=== PATIENT | female | born 1990 | race African-American/Black ===

== ENCOUNTER 2021-03-04 19:47 | Day surgery (SDC) | payer OTHER ==
[2021-03-04] MEDS ORDERED: hydrALAZINE 20 MG/ML VIAL SLOW IVP PRN (20:17)
[2021-03-04 20:36] VITALS: BMI 34.9
[2021-03-04] MEDS ORDERED: Acetaminophen 500 MG TAB PO SCH (21:15)
[2021-03-04] MEDS ORDERED: Lactated Ringer's 1,000 ML IV SCH (22:15)
== END 2021-03-05 00:17 | disposition home health service (06) ==
LOC: CSHLD/OP 19:47
PROVIDERS: ATTEND Obstetrics & Gynecology
DX: O99.891 Other specified diseases and conditions complicating pregnancy (principal); O30.003 Twin pregnancy, unspecified number of placenta and unspecified number of amniotic sacs, third trimester; M25.552 Pain in left hip; M25.551 Pain in right hip; M25.569 Pain in unspecified knee; Z3A.29 29 weeks gestation of pregnancy; Z79.899 Other long term (current) drug therapy; W01.0XXA Fall on same level from slipping, tripping and stumbling without subsequent striking against object, initial encounter; Y93.89 Activity, other specified; Y92.009 Unspecified place in unspecified non-institutional (private) residence as the place of occurrence of the external cause
CPT/HCPCS: 99283

== ENCOUNTER 2021-03-07 15:51 | Observation (INO) | payer BC, OTHER ==
[2021-03-07] MEDS ORDERED: hydrALAZINE 20 MG/ML VIAL SLOW IVP PRN (15:58)
[2021-03-07] MEDS: Betamet Acet/Betamet Na Ph 30 MG/5 ML VIAL IM SCH (16:37)
[2021-03-07 16:50] VITALS: BMI 35.9
[2021-03-07 19:16] LABS: SARS-CoV-2 NAA Rapid Test Not Detected (NotDetected)
[2021-03-08] MEDS: Betamet Acet/Betamet Na Ph 30 MG/5 ML VIAL IM SCH (16:18)
== END 2021-03-08 16:45 | disposition home or self-care (01) ==
LOC: CSHLD/OP 15:51 → CSHLD 17:45 → CSHANTE 03-08 12:30
PROVIDERS: ADMIT Obstetrics & Gynecology; ATTEND Obstetrics & Gynecology
DX: O30.043 Twin pregnancy, dichorionic/diamniotic, third trimester (principal); Z3A.30 30 weeks gestation of pregnancy; Z14.1 Cystic fibrosis carrier; Z20.822 Contact with and (suspected) exposure to COVID-19
CPT/HCPCS: 96372; G0378; J0702; U0002

== ENCOUNTER 2022-02-19 05:32 | Day surgery (SDC) | payer BC, OTHER ==
[2022-02-18 08:53] VITALS: BMI 31.1
[2022-02-19] MEDS ORDERED: Lidocaine 1% MPF 2 ML VIAL ONE (06:19)
[2022-02-19] MEDS ORDERED: EPINEPHrine 1 MG/ML AMP ONE (06:28)
[2022-02-19] MEDS ORDERED: Bupivacaine PF 0.5% 30 ML VIAL ONE (06:29)
[2022-02-19] MEDS ORDERED: Methylene Blue 50 MG/10 ML AMPUL ONE (06:29)
[2022-02-19] MEDS ORDERED: Rocuronium Bromide 10 MG/ML (10ML VIAL) ONE (06:46)
[2022-02-19] MEDS ORDERED: Lidocaine 1% PF 5 ML VIAL ONE (06:46)
[2022-02-19] MEDS ORDERED: Dexamethasone 4 mg/ml Vial ONE (06:46)
[2022-02-19] MEDS ORDERED: PROPOFOL 20 ML ONE (06:46)
[2022-02-19] MEDS ORDERED: Ondansetron PF 4 MG/2 ML Vial ONE (06:46)
[2022-02-19] MEDS ORDERED: Fentanyl 100 MCG/2 ML VIAL ONE ×2 (06:46→09:57)
[2022-02-19] MEDS ORDERED: Scopolamine 1.5 mg/72 hour Patch ONE (06:50)
[2022-02-19] MEDS ORDERED: Midazolam HCl 2 mg/2 ml Vial ONE (06:50)
[2022-02-19] MEDS ORDERED: CEFAZOLIN 2 GM VIAL ONE (06:56)
[2022-02-19] MEDS ORDERED: Meperidine HCl/PF 25 MG/ML VIAL ONE (08:59)
[2022-02-19] MEDS ORDERED: SUGAMMADEX SODIUM 200 MG/2 ML VIAL ONE (09:05)
[2022-02-19] MEDS ORDERED: Acetaminophen 500 MG TAB ONE (11:27)
[2022-02-19 12:21] LABS: Hemoglobin 12.4 g/dL (12.0-15.5)
[2022-02-19] MEDS ORDERED: HYDROcodone/Acetaminophen 7.5/325 mg Tablet ONE (13:26)
== END 2022-02-19 14:50 | disposition home or self-care (01) ==
LOC: CSHSDC 05:32
PROVIDERS: ATTEND Obstetrics & Gynecology
PROC: 0UT94ZZ Resection of Uterus, Percutaneous Endoscopic Approach (ICD-10-PCS; principal; 2022-02-19)
PROC: 0UB74ZZ Excision of Bilateral Fallopian Tubes, Percutaneous Endoscopic Approach (ICD-10-PCS; principal; 2022-02-19)
DX: N92.0 Excessive and frequent menstruation with regular cycle (principal); N94.6 Dysmenorrhea, unspecified; N80.03 Adenomyosis of the uterus; N73.6 Female pelvic peritoneal adhesions (postinfective); N80.203 Endometriosis of bilateral fallopian tubes, unspecified depth; N80.321 Superficial endometriosis of the posterior cul-de-sac; N80.102 Endometriosis of left ovary, unspecified depth; N80.352 Endometriosis of the left pelvic sidewall, unspecified depth; N87.9 Dysplasia of cervix uteri, unspecified; N32.89 Other specified disorders of bladder; N83.201 Unspecified ovarian cyst, right side
CPT/HCPCS: 36415; 85014; 85018; 88307; C1776; J0171; J1100; J2175; J2250; J2405; J2704; J3010; Q9968; S0020

== ENCOUNTER 2022-02-28 11:32 | Inpatient (IN) | payer BC, OTHER ==
[2022-02-28] MEDS ORDERED: Ondansetron PF 4 MG/2 ML Vial ONE (11:58)
[2022-02-28] MEDS ORDERED: Morphine 4 MG/ML VIAL ONE ×2 (11:58→15:22)
[2022-02-28 12:15] LABS: Hemoglobin 11.4 g/dL (12.0-15.5); Mean Corpuscular HGB CONC 33.5 g/dL (32.0-36.0); Mean Corpuscular Hemoglobin 30.4 pg (27.0-33.0); Mean Corpuscular Volume 90.7 fl (81.6-98.3); Mean Platelet Volume 9.8 fl (7.4-10.4); Platelet Count 459 10x3/uL (150-450); RBC Distribution Width 14.3 % (11.5-14.5); Red Blood Cell (RBC) Count 3.75 10x6/uL (3.90-5.03); White Blood Cell (WBC) Count 20.8 10x3/uL (3.5-10.5)
[2022-02-28 12:17] LABS: MDiff Complete? YES
[2022-02-28 12:19] LABS: ALT (SGPT) 71 U/L (8-55); AST (SGOT) 34 U/L (5-34); Albumin 3.6 g/dL (3.5-5.0); Alkaline Phosphatase 213 U/L (40-110); Anion Gap 15 mmol/L (10-20); BUN (Urea Nitrogen) 6 mg/dL (7.0-18.7); Bilirubin, Total 1.8 mg/dL (0.2-1.2); CK (CPK) 34 U/L (29-168); Calc. Creatinine Clearance 0 mL/min (70-130); Calcium 9.5 mg/dL (7.8-10.44); Carbon Dioxide 22 mmol/L (22-29); Chloride 101 mmol/L (98-107); Estimated GFR 120; Globulin 3.9 g/dL (2.4-3.5); Glucose 154 mg/dL (70-105); Potassium 3.1 mmol/L (3.5-5.1); Protein, Total 7.5 g/dL (6.0-8.3); Sodium 135 mmol/L (136-145)
[2022-02-28] MEDS ORDERED: Iopamidol 300 61% 100 ML VIAL FS ONE (12:19)
[2022-02-28 12:46] LABS: PTT 27.9 sec (22.0-33.0); Prothrombin Time 10.7 sec (9.5-12.1)
[2022-02-28 13:28] LABS: Band 2 % (5-11); Eosinophils 2 % (0-10); Lymphocytes 6 % (21-51); Monocytes 3 % (0-10); Neutrophil 87 % (42-75); Platelet Morphology Comment Appears Increased
[2022-02-28 13:39] LABS: Bilirubin Neg (Negative); Blood, Urine 250 (Negative); Clarity Slightly Cloudy (Clear); Glucose, Urine (Dipstick) Normal (Negative); Ketone, Urine Negative (Negative); Leukocyte 500 (Negative); Nitrite Negative (Negative); Protein, Urine (Dipstick) 30 mg/dl (Neg-Trace)
[2022-02-28 14:13] LABS: Bacteria/HPF 1+ HPF (None Seen)
[2022-02-28] MEDS ORDERED: Piperacillin/Tazobactam 4.5 GM VIAL ONE (14:13)
[2022-02-28] MEDS ORDERED: Ondansetron PF 4 MG/2 ML Vial IVP PRN (16:00)
[2022-02-28] MEDS ORDERED: Ondansetron ODT 4 MG TAB PO PRN (16:00)
[2022-02-28] MEDS ORDERED: Calcium Carbonate 500 MG ChewTAB PO PRN (16:00)
[2022-02-28] MEDS ORDERED: Acetaminophen 325 MG TAB PO PRN (16:00)
[2022-02-28] MEDS ORDERED: Potassium Chloride 20 MEQ TAB PO SCH (17:03)
[2022-02-28] MEDS: Piperacillin/Tazobactam 3.375 GM in Sodium Chloride 0.9% 100 ML IVPB SCH (18:26)
[2022-02-28] MEDS: Sodium Chloride 0.9% 1,000 ML IV SCH (18:26)
[2022-02-28] MEDS: HYDROcodone/Acetaminophen 5/325 mg Tablet PO PRN (18:27)
[2022-02-28 18:53] VITALS: BMI 27.4
[2022-02-28] MEDS: Famotidine 20 MG TAB PO SCH (20:32)
[2022-02-28] MEDS ORDERED: Acetaminophen 500 MG TAB PO PRN (21:00)
[2022-02-28 21:39] LABS: SARS-CoV-2 NAA Rapid Test Not Detected (NotDetected)
[2022-02-28] MEDS: Famotidine/PF 20 mg/2ml Vial SLOW IVP SCH (22:05)
[2022-03-01] MEDS: HYDROcodone/Acetaminophen 5/325 mg Tablet PO PRN ×5 (00:40→22:50)
[2022-03-01] MEDS: Piperacillin/Tazobactam 3.375 GM in Sodium Chloride 0.9% 100 ML IVPB SCH ×3 (01:56→18:47)
[2022-03-01 04:20] LABS: #Basophils 0.1 10x3/uL (0.0-0.2); #Eosinphils 0.3 10x3/uL (0.0-0.5); #Monocytes 1.6 10x3/uL (0.0-1.1); #Neutrophils 14.5 10x3/uL (1.5-8.4); %Basophils 0.3 % (0.0-2.0); %Eosinophils 1.7 % (0.0-6.0); %Monocytes 9.2 % (0.0-10.0); %Neutrophils 82.3 % (40.0-75.0); Hemoglobin 10.2 g/dL (12.0-15.5); Mean Corpuscular HGB CONC 33.2 g/dL (32.0-36.0); Mean Corpuscular Hemoglobin 30.4 pg (27.0-33.0); Mean Corpuscular Volume 91.6 fl (81.6-98.3); Mean Platelet Volume 9.6 fl (7.4-10.4); Platelet Count 379 10x3/uL (150-450); RBC Distribution Width 14.4 % (11.5-14.5); Red Blood Cell (RBC) Count 3.35 10x6/uL (3.90-5.03); White Blood Cell (WBC) Count 17.6 10x3/uL (3.5-10.5)
[2022-03-01 04:35] LABS: ALT (SGPT) 55 U/L (8-55); AST (SGOT) 22 U/L (5-34); Albumin 3.1 g/dL (3.5-5.0); Alkaline Phosphatase 188 U/L (40-110); Anion Gap 11 mmol/L (10-20); BUN (Urea Nitrogen) Less than 4 mg/dL (7.0-18.7); Bilirubin, Total 1.1 mg/dL (0.2-1.2); Calc. Creatinine Clearance 159 mL/min (70-130); Calcium 8.7 mg/dL (7.8-10.44); Carbon Dioxide 24 mmol/L (22-29); Chloride 107 mmol/L (98-107); Estimated GFR 121; Globulin 3.3 g/dL (2.4-3.5); Glucose 102 mg/dL (70-105); Potassium 3.8 mmol/L (3.5-5.1); Protein, Total 6.4 g/dL (6.0-8.3); Sodium 138 mmol/L (136-145)
[2022-03-01] MEDS ORDERED: FLU VACC QS2022-23(6MOS UP)/PF 60 MCG/0.5 ML SYRINGE IM ONE (09:00)
[2022-03-01] MEDS: Famotidine/PF 20 mg/2ml Vial SLOW IVP SCH ×2 (10:00→22:53)
[2022-03-01] MEDS: Famotidine 20 MG TAB PO SCH ×2 (10:46→19:53)
[2022-03-01] MEDS: Sodium Chloride 0.9% 1,000 ML IV SCH ×2 (22:52→22:53)
[2022-03-02] MEDS: Piperacillin/Tazobactam 3.375 GM in Sodium Chloride 0.9% 100 ML IVPB SCH ×3 (03:07→17:48)
[2022-03-02] MEDS: HYDROcodone/Acetaminophen 5/325 mg Tablet PO PRN ×4 (06:33→21:49)
[2022-03-02] MEDS: Famotidine 20 MG TAB PO SCH ×2 (10:54→21:08)
[2022-03-02] MEDS: Famotidine/PF 20 mg/2ml Vial SLOW IVP SCH ×2 (10:57→21:07)
[2022-03-02 15:00] LABS: #Basophils 0.1 10x3/uL (0.0-0.2); #Eosinphils 0.5 10x3/uL (0.0-0.5); #Monocytes 1.4 10x3/uL (0.0-1.1); #Neutrophils 12.8 10x3/uL (1.5-8.4); %Basophils 0.4 % (0.0-2.0); %Eosinophils 2.8 % (0.0-6.0); %Lymphocytes 9.8 % (18.0-47.0); %Monocytes 8.7 % (0.0-10.0); %Neutrophils 77.5 % (40.0-75.0); Hemoglobin 11.1 g/dL (12.0-15.5); Mean Corpuscular HGB CONC 33.3 g/dL (32.0-36.0); Mean Corpuscular Hemoglobin 30.3 pg (27.0-33.0); Mean Platelet Volume 9.1 fl (7.4-10.4); Platelet Count 462 10x3/uL (150-450); RBC Distribution Width 14.2 % (11.5-14.5); Red Blood Cell (RBC) Count 3.66 10x6/uL (3.90-5.03); White Blood Cell (WBC) Count 16.5 10x3/uL (3.5-10.5)
[2022-03-02] MEDS: Sodium Chloride 0.9% 1,000 ML IV SCH ×2 (17:31→23:48)
[2022-03-03] MEDS: Piperacillin/Tazobactam 3.375 GM in Sodium Chloride 0.9% 100 ML IVPB SCH ×3 (02:14→19:29)
[2022-03-03] MEDS: HYDROcodone/Acetaminophen 5/325 mg Tablet PO PRN ×3 (02:18→19:39)
[2022-03-03] MEDS: Sodium Chloride 0.9% 1,000 ML IV SCH ×3 (06:30→23:01)
[2022-03-03] MEDS: Famotidine 20 MG TAB PO SCH ×2 (10:30→20:01)
[2022-03-03] MEDS: Famotidine/PF 20 mg/2ml Vial SLOW IVP SCH ×2 (11:10→23:01)
[2022-03-03 17:54] LABS: #Basophils 0.1 10x3/uL (0.0-0.2); #Eosinphils 0.4 10x3/uL (0.0-0.5); #Monocytes 0.8 10x3/uL (0.0-1.1); #Neutrophils 9.6 10x3/uL (1.5-8.4); %Basophils 0.6 % (0.0-2.0); %Eosinophils 2.7 % (0.0-6.0); %Monocytes 5.9 % (0.0-10.0); Hemoglobin 11.1 g/dL (12.0-15.5); Mean Corpuscular HGB CONC 33.2 g/dL (32.0-36.0); Mean Corpuscular Hemoglobin 30.2 pg (27.0-33.0); Platelet Count 608 10x3/uL (150-450); RBC Distribution Width 14.3 % (11.5-14.5); Red Blood Cell (RBC) Count 3.67 10x6/uL (3.90-5.03); White Blood Cell (WBC) Count 13.6 10x3/uL (3.5-10.5)
[2022-03-04] MEDS: HYDROcodone/Acetaminophen 5/325 mg Tablet PO PRN ×3 (00:13→21:12)
[2022-03-04] MEDS: Piperacillin/Tazobactam 3.375 GM in Sodium Chloride 0.9% 100 ML IVPB SCH ×3 (02:55→17:13)
[2022-03-04] MEDS: Famotidine/PF 20 mg/2ml Vial SLOW IVP SCH ×2 (08:29→23:06)
[2022-03-04] MEDS: Famotidine 20 MG TAB PO SCH ×2 (09:06→21:08)
[2022-03-04] MEDS: Sodium Chloride 0.9% 1,000 ML IV SCH ×2 (09:19→17:13)
[2022-03-04] MEDS ORDERED: Ibuprofen 800 MG TAB PO PRN (12:05)
[2022-03-04 14:33] LABS: #Basophils 0.1 10x3/uL (0.0-0.2); #Eosinphils 0.5 10x3/uL (0.0-0.5); #Monocytes 1.3 10x3/uL (0.0-1.1); #Neutrophils 7.7 10x3/uL (1.5-8.4); %Basophils 0.6 % (0.0-2.0); %Eosinophils 3.8 % (0.0-6.0); %Lymphocytes 19.7 % (18.0-47.0); %Monocytes 10.4 % (0.0-10.0); %Neutrophils 63.9 % (40.0-75.0); Hemoglobin 10.8 g/dL (12.0-15.5); Mean Corpuscular HGB CONC 33.9 g/dL (32.0-36.0); Mean Corpuscular Hemoglobin 30.4 pg (27.0-33.0); Mean Corpuscular Volume 89.9 fl (81.6-98.3); Mean Platelet Volume 8.7 fl (7.4-10.4); Platelet Count 502 10x3/uL (150-450); RBC Distribution Width 14.3 % (11.5-14.5); Red Blood Cell (RBC) Count 3.55 10x6/uL (3.90-5.03); White Blood Cell (WBC) Count 12.1 10x3/uL (3.5-10.5)
[2022-03-05] MEDS: Sodium Chloride 0.9% 1,000 ML IV SCH ×3 (00:50→09:00)
[2022-03-05] MEDS: Piperacillin/Tazobactam 3.375 GM in Sodium Chloride 0.9% 100 ML IVPB SCH ×3 (01:11→16:24)
[2022-03-05] MEDS: Famotidine 20 MG TAB PO SCH (08:09)
[2022-03-05] MEDS: HYDROcodone/Acetaminophen 5/325 mg Tablet PO PRN (08:10)
[2022-03-05] MEDS: Famotidine/PF 20 mg/2ml Vial SLOW IVP SCH (08:45)
[2022-03-05 12:19] VITALS: BP 136/92; TEMP 98.2
[2022-03-05 13:53] LABS: #Basophils 0.1 10x3/uL (0.0-0.2); #Eosinphils 0.4 10x3/uL (0.0-0.5); #Neutrophils 7.3 10x3/uL (1.5-8.4); %Basophils 0.6 % (0.0-2.0); %Eosinophils 3.4 % (0.0-6.0); %Lymphocytes 19.9 % (18.0-47.0); %Monocytes 9.1 % (0.0-10.0); %Neutrophils 65.4 % (40.0-75.0); Mean Corpuscular HGB CONC 32.9 g/dL (32.0-36.0); Mean Corpuscular Hemoglobin 30.1 pg (27.0-33.0); Mean Corpuscular Volume 91.5 fl (81.6-98.3); Mean Platelet Volume 8.9 fl (7.4-10.4); Platelet Count 567 10x3/uL (150-450); RBC Distribution Width 14.6 % (11.5-14.5); Red Blood Cell (RBC) Count 3.65 10x6/uL (3.90-5.03); White Blood Cell (WBC) Count 11.2 10x3/uL (3.5-10.5)
== END 2022-03-05 19:56 | disposition home or self-care (01) | DRG 863 ==
LOC: CSHERS 11:32 → CSHPP 17:33
PROVIDERS: ADMIT Obstetrics & Gynecology; ATTEND Obstetrics & Gynecology
DX: T81.40XA Infection following a procedure, unspecified, initial encounter (principal); N99.820 Postprocedural hemorrhage of a genitourinary system organ or structure following a genitourinary system procedure; N99.842 Postprocedural seroma of a genitourinary system organ or structure following a genitourinary system procedure; I10 Essential (primary) hypertension; Y83.8 Other surgical procedures as the cause of abnormal reaction of the patient, or of later complication, without mention of misadventure at the time of the procedure; F12.10 Cannabis abuse, uncomplicated; N76.0 Acute vaginitis; Z20.822 Contact with and (suspected) exposure to COVID-19; Z98.51 Tubal ligation status; Z79.899 Other long term (current) drug therapy
CPT/HCPCS: 36415; 74177; 80053; 81003; 81015; 82550; 83605; 85025; 85610; 85730; 86850; 86900; 86901; 87040; 87086; 96365; 96366; 96375; 96376; J2270; J2405; J2543; J3490; J7050; Q9967; U0002

== ENCOUNTER 2024-02-06 15:33 | Emergency (ER) | payer OTHER, SELFPAY ==
[2024-02-06] MEDS ORDERED: Ibuprofen 200 MG TAB ONE (16:56)
[2024-02-06] MEDS ORDERED: Dexamethasone 4 MG TAB ONE (17:01)
== END 2024-02-06 17:40 | disposition home or self-care (01) ==
LOC: CSHERS 15:33
DX: J02.9 Acute pharyngitis, unspecified (principal); Z20.828 Contact with and (suspected) exposure to other viral communicable diseases
CPT/HCPCS: 87428; 93005; 93010; 99283; J8540